=== PATIENT | female | born 2000 | race Caucasian/White ===

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

== ENCOUNTER 2019-03-18 22:46 | Emergency (ER) | payer SELFPAY ==
[~2019-03-18] VITALS: Ht 165.1 cm; Wt 63.5 kg
[~2019-03-18 22:46] MED LIST: CIPR250T30 PO; ONDA4TAB7 PO
[2019-03-18 22:58] VITALS: BP 136/87
[2019-03-18] MEDS ORDERED: LIDOCAINE 2% 20 ML VIAL. IJ ONE (23:30)
[2019-03-18] MEDS ORDERED: HYDROcodone/APAP 5/325MG 1 TAB TABLET PO ONE (23:30)
[2019-03-18] MEDS ORDERED: HYDR30CR61 TP (23:35)
[2019-03-18] MEDS ORDERED: SENN-161 PO (23:35)
--- NOTE | 2019-03-18 23:35 | PHYS DOC ---
Past Medical History Past Medical History: No Pertinent History Past Surgical History: No Surgical History Alcohol Use: None Drug Use: None Adult General Chief Complaint Chief Complaint: HEMORRHOIDS HPI HPI Patient is a 19 year old female who presents with days of a hemorrhoid. Patient states she gets them often but they usually go away. Patient states she often has constipation and she took some MiraLAX last week but it did not help. Patient states she has not had a good bowel movement in a week. Patient is rating her pain a 8 out of 10. Review of Systems Review of Systems GI: Hemorrhoid. Denies abdominal pain, nausea, vomiting, bloody stools or diarrhea [] All other systems were reviewed and found to be within normal limits, except as documented in this note. Allergies Allergies Allergies Coded Allergies Type Severity Reaction Last Updated Verified No Known Drug Allergies 12/20/18 No Physical Exam Physical Exam Constitutional: Well developed, well nourished, no acute distress, non-toxic appearance. [] Abdomen: Bowel sounds normal, soft, no tenderness, no masses, no pulsatile masses. [] Skin: Nickel sized tender external hemorrhoid. Warm, dry, no erythema, no rash. [] Neurologic: Alert and oriented X 3, normal motor function, normal sensory function, no focal deficits noted. [] Psychologic: Affect normal, judgement normal, mood normal. [] EKG EKG [] Radiology/Procedures Radiology/Procedures [] Course & Med Decision Making Course & Med Decision Making Patient is a 19 year old female who presents with days of a hemorrhoid. Patient states she gets them often but they usually go away. Patient states she often has constipation and she took some MiraLAX last week but it did not help. Patient states she has not had a good bowel movement in a week. Patient is rating her pain a 8 out of 10. Patient has a external thrombosed nickel-sized tender hemorrhoid. Hemorrhoid is numbed with 2% lidocaine. A small incision is made over the thrombosed area of the hemorrhoid. Three small clots were removed from the hemorrhoid and hemorrhoid began to shrink. See below. Hemorrhoid Incision and Drainage with irrigation by me: Location: Rectum Anesthesia: Local 2% Lidocaine Technique: Disrupted loculations w/ instrumentation Packing: None Complications: Neurovascularly intact post procedure 48 hour wound check. Scar minimization instructions given. ED Ultrasound: Abscess localized by me using concurrent ultrasound guidance and assessment of the anatomy. Real time image archived in the medical record confirms anatomy. Rectal Exam: Normal tone, Thrombosed hemorrhoid, Positive control Stool: Brown Guaiac: Not indicated [] Saad Disclaimer Saad Disclaimer This electronic medical record was generated, in whole or in part, using a voice recognition dictation system. Departure Departure Impression: Primary Impression: External hemorrhoid, thrombosed Disposition: HOME, SELF-CARE Condition: STABLE Referrals: NO PCP (PCP) Patient Instructions: Hemorrhoids Additional Instructions: Follow up with [facility] physician. Sit in a warm bath to help with pain. Take Ibuprofen to help with pain. Keep the area clean. Scripts Hydrocortisone (ANUSOL-HC) 30 Gm Cream..g. 1 JL TP TID for 10 Days, #30 GM 0 Refills Prov: IQRA HYMAN APRN 03/18/19 Sennosides/Docusate Sodium (SENNA-DOCUSATE SODIUM TABLET) 1 Each Tablet 1 EACH PO DAILY, #10 TAB Prov: IQRA HYMAN APRN 03/18/19 IQRA HYAMN APRN Mar 18, 2019 23:35
== END 2019-03-18 23:49 | disposition home or self-care (01) ==
LOC: ER 22:46
DX: K64.5 Perianal venous thrombosis (principal)
CPT/HCPCS: 46083; 99284; J2001; 96361; 96372; 96374; 96375

== ENCOUNTER 2019-12-26 21:10 | Emergency (ER) | payer SELFPAY ==
[~2019-12-26] VITALS: Ht 165.1 cm; Wt 67.0 kg
[~2019-12-26 21:10] MED LIST changes: +HYDR30CR61 TP; +SENN-161 PO
[2019-12-26 21:27] VITALS: BP 149/92
--- NOTE | 2019-12-26 22:47 | PHYS DOC ---
Past Medical History Past Medical History: Other Additional Past Medical Histor: FREQUENT HEMORRHOIDS Past Surgical History: No Surgical History Smoking Status: Current Some Day Smoker Alcohol Use: None Drug Use: None General Adult EDM: Chief Complaint: HEMORRHOIDS HPI: HPI: Patient is a 19 year old female who presents with chief complaint of hemorrhoid. She said it for 3 days she went to the hospital yesterday gave her narcotics but the pain is still there. She has a history of thrombosed hemorrhoid in the past Review of Systems: Review of Systems: C Heart Score: Risk Factors: Risk Factors: DM, Current or recent (<one month) smoker, HTN, HLP, family history of CAD, obesity. Risk Scores: Score 0 - 3: 2.5% MACE over next 6 weeks - Discharge Home Score 4 - 6: 20.3% MACE over next 6 weeks - Admit for Clinical Observation Score 7 - 10: 72.7% MACE over next 6 weeks - Early Invasive Strategies Current Medications: Current Medications Medications (Trade) Dose Ordered Sig/Sadia Start Time Stop Time Status Last Admin Dose Admin Lidocaine/ Epinephrine (LIDOCAINE 1%-EPI 1:100,000 Multi-Dose) 20 ml 1X ONCE 12/26/19 23:00 12/26/19 23:01 Allergies: Allergies: Allergies Coded Allergies Type Severity Reaction Last Updated Verified No Known Drug Allergies 12/20/18 No Physical Exam: PE: Constitutional: Well developed, well nourished, no acute distress, non-toxic appearance. [] HENT: Normocephalic, atraumatic, bilateral external ears normal, oropharynx moist, no oral exudates, nose normal. [] Abdomen is soft nontender rectal exam performed with Elsy spring layer did show a large moderate to large thrombosed external hemorrhoid. No active bleeding it was firm Skin: Warm, dry, no erythema, no rash. [] Extremities: No tenderness, no cyanosis, no clubbing, ROM intact, no edema. [] Neurologic: Alert and oriented X 3, normal motor function, normal sensory function, no focal deficits noted. [] Psychologic: Affect normal, judgement normal, mood normal. [] Current Patient Data: Vital Signs: Vital Signs Date Time Temp Pulse Resp B/P (MAP) Pulse Ox O2 Delivery O2 Flow Rate FiO2 12/26/19 21:27 98.7 78 18 149/92 (111) 100 Room Air 98.7 EKG: EKG: [] Radiology/Procedures: Radiology/Procedures: [] Course & Med Decision Making: Course & Med Decision Making Pertinent Labs and Imaging studies reviewed. (See chart for details) [] Procedure note incision and drainage of thrombosed hemorrhoid. Verbal consent was obtained the area was prepped and draped in the usual sterile fashion lidocaine subcutaneous was used for anesthesia a 1 cm incision was made with an 11 blade and removed some moderate amount of clot improved following treatment patient was given good wound precautions and instructed follow-up with and obtain primary care for surgical referral should these continue. Encouraged hydration and fiber Dragon Disclaimer: Dragon Disclaimer: This electronic medical record was generated, in whole or in part, using a voice recognition dictation system. Departure Departure Impression: Primary Impression: External hemorrhoid, thrombosed Disposition: HOME, SELF-CARE Condition: STABLE Referrals: NO PCP (PCP) Patient Instructions: Hemorrhoids Justicifation of Admission Dx: Justifications for Admission: Justification of Admission Dx: N/A HERIBERTO LOPEZ MD Dec 26, 2019 22:47
[2019-12-26] MEDS ORDERED: LIDOCAINE 1%/EPI 1:100,000 20 ML VIAL. INJ ONE (23:00)
== END 2019-12-26 23:23 | disposition home or self-care (01) ==
LOC: ER 21:10
DX: K64.5 Perianal venous thrombosis (principal); F17.200 Nicotine dependence, unspecified, uncomplicated
CPT/HCPCS: 46083; 99284; J3490

== ENCOUNTER 2020-03-09 12:13 | Emergency (ER) | payer SELFPAY ==
[~2020-03-09] VITALS: Ht 165.1 cm; Wt 63.6 kg
[2020-03-09 12:25] VITALS: BP 140/87
[2020-03-09] MEDS ORDERED: CYCL10TA2 PO (12:43)
--- NOTE | 2020-03-09 12:45 | PHYS DOC ---
Past Medical History Past Medical History: Other Additional Past Medical Histor: FREQUENT HEMORRHOIDS Past Surgical History: No Surgical History Smoking Status: Current Some Day Smoker Alcohol Use: None Drug Use: None General Adult EDM: Chief Complaint: SHOUDLER HPI: HPI: Patient is a 20 year old female, accompanied by her significant other, who presents to the emergency department with complaints of pain in both of her shoulders for the last month. She denies any injury, numbness, tingling, or weakness of her upper extremities. The patient states that the pain in her shoulders increases when she tries to hold her nephew. She denies any recent fall, cough, chest pain, palpitations, or back pain. She denies any alleviating factors or radiation of the pain. She currently rates the pain a 3 out of 10 on the pain scale. Review of Systems: Review of Systems: Constitutional: Denies fever or chills. [] Respiratory: Denies cough or shortness of breath. [] Cardiovascular: Denies chest pain GI: Denies abdominal pain, nausea, vomiting, or diarrhea. [] Musculoskeletal: Denies back pain or joint pain; see HPI. [] Integument: Denies rash. [] Neurologic: Denies headache, focal weakness or sensory changes. [] Heart Score: Risk Factors: Risk Factors: DM, Current or recent (<one month) smoker, HTN, HLP, family history of CAD, obesity. Risk Scores: Score 0 - 3: 2.5% MACE over next 6 weeks - Discharge Home Score 4 - 6: 20.3% MACE over next 6 weeks - Admit for Clinical Observation Score 7 - 10: 72.7% MACE over next 6 weeks - Early Invasive Strategies Allergies: Allergies: Allergies Coded Allergies Type Severity Reaction Last Updated Verified No Known Drug Allergies 12/20/18 No Physical Exam: PE: poor posture noted Constitutional: Well developed, well nourished, no acute distress, non-toxic appearance. [] HENT: Normocephalic, atraumatic, bilateral external ears normal, nose normal. [] Eyes: PERRLA, EOMI, conjunctiva normal, no discharge. [] Neck: Normal range of motion, non-tender, supple, no stridor. [] Cardiovascular:Heart rate regular rhythm Lungs & Thorax: Respirations even and unlabored, no retractions, no respiratory distress Skin: Warm, dry, no erythema, no rash. [] Musculoskeletal: Tenderness to palpation of bilateral trapezius area of shoulders, no bony tenderness or deformity, no cyanosis, ROM intact, no edema; poor posture noted [] Neurologic: Alert and oriented X 3, normal sensation, normal motor, no focal deficits noted. [] Psychologic: Affect normal, judgement normal, mood normal. [] EKG: EKG: [] Radiology/Procedures: Radiology/Procedures: [] Course & Med Decision Making: Course & Med Decision Making Pertinent Labs and Imaging studies reviewed. (See chart for details) [] Dragon Disclaimer: DragChirpVision Disclaimer: This electronic medical record was generated, in whole or in part, using a voice recognition dictation system. Departure Departure Impression: Primary Impression: Strain of cervical portion of both trapezius muscles Additional Impression: Poor posture Disposition: 01 HOME, SELF-CARE Condition: STABLE Referrals: NO PCP (PCP) Patient Instructions: Shoulder Pain, [id number] Additional Instructions: Fill the prescription and take it as directed. Recommend that you take 600 to 800 mg of ibuprofen every 6 hours as needed for pain with food. Practice good posture as demonstrated in the emergency department. You may apply heat, or ice to sore areas as needed for comfort, also recommend massage and frequent stretching. Follow-up with one of the primary care doctors listed below if sy mptoms persist, return to the ER if symptoms worsen. [facility] [address] [place] [address] [facility] [address] [place] [address] [facility] [address] [facility] [place] [place] [address] [facility] [address] [place] [address] [facility] [address] [place] [address] [facility] [address] [place] [address] [facility] [address] [place] [address] [facility] [address] [place] [address] [employer] [address] [place] [address] [facility] [address] [place] [address] Scripts Cyclobenzaprine Hcl (CYCLOBENZAPRINE HCL) 10 Mg Tablet 1 TAB PO TID PRN for PAIN for 10 Days, #30 TAB 0 Refills Prov: SHARON LOU APRN 03/09/20 Justicifation of Admission Dx: Justifications for Admission: Justification of Admission Dx: N/A SHARON LOU ASSISTANT PROFESSOR NURSE EDUCATION Mar 09, 2020 12:45
== END 2020-03-09 12:56 | disposition home or self-care (01) ==
LOC: ER 12:13
DX: S46.912A Strain of unspecified muscle, fascia and tendon at shoulder and upper arm level, left arm, initial encounter (principal); S46.911A Strain of unspecified muscle, fascia and tendon at shoulder and upper arm level, right arm, initial encounter; R29.3 Abnormal posture; F17.200 Nicotine dependence, unspecified, uncomplicated; X58.XXXA Exposure to other specified factors, initial encounter; Y93.89 Activity, other specified; Y92.89 Other specified places as the place of occurrence of the external cause; Y99.8 Other external cause status
CPT/HCPCS: 99283